=== PATIENT | female | born 1995 | race Caucasian/White ===

== ENCOUNTER 2017-07-06 12:59 | Emergency (ER) | payer MEDICAID ==
[2017-07-06 13:31] VITALS: BP 103/62
[2017-07-06] MEDS ORDERED: HYDROmorphone 0.5 MG/0.5 ML Syringe IM ONE (13:55)
--- NOTE | 2017-07-06 14:04 | EDM.PDOC ---
ED HPI GENERAL MEDICAL PROBLEM - General Chief Complaint: General Stated Complaint: CYST ON TAILBONE Time Seen by Provider: 07/06/17 13:56 Source of Information: Reports: Patient History Limitations: Reports: No Limitations - History of Present Illness INITIAL COMMENTS - FREE TEXT/NARRATIVE: pt arrived with a very painful pilonidal area with swelling and redness. This did start about fri. Onset: Gradual Duration: Day(s): Location: Reports: Other ( in pilonidal area. ) Quality: Reports: Sharp, Stabbing Severity: Moderate Associated Symptoms: Reports: No Other Symptoms tailbone Pain Score (Numeric/FACES): 8 - Related Data Allergies Allergy/AdvReac Type Severity Reaction Status Date / Time No Known Allergies Allergy Verified 07/06/17 13:22 Home Meds: Home Meds Ziprasidone HCl [Geodon] 40 mg PO DAILY 07/06/17 [History] Past Medical History - Past Health History Medical/Surgical History: Denies Medical/Surgical History Other OB/BYN History: ovarian cyst 2 years ago Psychiatric History: Reports: Anxiety, Depression, Suicide Attempt, Suicidal Ideation - Past Surgical History HEENT Surgical History: Reports: Oral Surgery Social & Family History - Tobacco Use Smoking Status *Q: Current Every Day Smoker Years of Tobacco use: 3 Packs/Tins Daily: 0.2 - Caffeine Use Caffeine Use: Reports: None - Alcohol Use Days Per Week of Alcohol Use: 0 - Recreational Drug Use Recreational Drug Use: No ED ROS GENERAL - Review of Systems Review Of Systems: See Below Constitutional: Reports: No Symptoms HEENT: Reports: No Symptoms Respiratory: Reports: No Symptoms Cardiovascular: Reports: No Symptoms Endocrine: Reports: No Symptoms GI/Abdominal: Reports: No Symptoms, Other (pain in the pilonidal cyst area. ) : Reports: No Symptoms Neurological: Reports: No Symptoms ED EXAM, GENERAL - Physical Exam Exam: See Below Free Text/Narrative:: pt arrived with pain in the pilonidal area. Exam Limited By: No Limitations General Appearance: Alert, Anxious, Moderate Distress Ears: Normal TMs Nose: Normal Inspection Throat/Mouth: Normal Inspection Head: Atraumatic Neck: Normal Inspection Respiratory/Chest: No Respiratory Distress Cardiovascular: Regular Rate, Rhythm GI/Abdominal: Soft, Non-Tender Rectal (Female) Exam: Other ( Pt has no rectal pain. She has localized swelling and redness in the pilonidal area. ) Back Exam: Normal Inspection Course - Vital Signs Last Recorded V/S: Last Vital Signs Temp 35.9 C 07/06/17 13:18 Pulse 100 07/06/17 13:30 Resp 22 H 07/06/17 13:30 BP 103/62 07/06/17 13:30 Pulse Ox 98 07/06/17 13:30 - Orders/Labs/Meds Orders: Active Orders 24 hr Category Date Time Status CULTURE WOUND + SMEAR [RM] Stat Lab 07/06/17 15:03 Received Meds: Medications Discontinued Medications Generic Name Dose Route Start Last Admin Trade Name Freq PRN Reason Stop Dose Admin Hydromorphone HCl 0.5 mg 07/06/17 13:55 07/06/17 14:17 Dilaudid IM 07/06/17 13:56 0.5 mg ONETIME ONE Administration Lidocaine/Epinephrine 50 ml 07/06/17 14:30 07/06/17 14:35 Xylocaine 1% With Epinephrine 1:100,000 SUBCUT 07/06/17 14:31 50 ml ONETIME ONE Administration Povidone Iodine Confirm 07/06/17 14:42 Betadine 10% Soln Administered 07/06/17 14:43 Dose 1 ml .ROUTE .STK-MED ONE Povidone Iodine 118 ml 07/06/17 15:00 07/06/17 15:00 Betadine 10% Soln TOP 07/06/17 15:01 118 ml ONETIME ONE Administration - Re-Assessments/Exams Free Text/Narrative Re-Assessment/Exam: 07/06/17 15:10 Dr Hernandez opened the cyst and packed the wound. Departure - Departure Time of Disposition: 15:11 Disposition: Home, Self-Care 01 Condition: Fair Clinical Impression: Pilonidal abscess - Discharge Information Referrals: Sandi Padilla CNM [Primary Care Provider] - Forms: ED Department Discharge Care Plan Goals: Dr Hernandez will see the pt tomorrow, norco 5/325 q6h prn for pain augmentin.
[2017-07-06] MEDS ORDERED: Lidocaine 1% with EPINEPHrine 1:100,000 50 ML MDV SUBCUT ONE (14:30)
[2017-07-06] MEDS ORDERED: Povidone-Iodine 10% Soln 118.25 ML Bottle ONE (14:42)
[2017-07-06] MEDS ORDERED: Povidone-Iodine 10% Soln 118.25 ML Bottle TOP ONE (15:00)
--- NOTE | 2017-07-07 09:10 | OR ---
DATE OF PROCEDURE: 07/06/2017 PREOPERATIVE DIAGNOSIS: Pilonidal abscess. POSTOPERATVE DIAGNOSIS: Pilonidal abscess. PROCEDURE: Left lateral drainage of pilonidal abscess. SURGEON: Phi Jimenez MD. ANESTHESIA: Lidocaine 1% with epinephrine local. INDICATION: This 22-year-old white female noted onset of pain in her buttock cleft about four days ago. This became bad enough that she presented to the emergency room today seeking medical care. She denies fever and chills. She is found to have a pilonidal abscess. It tends to be to the left side of the buttock cleft. I counseled her for lateral drainage with a plan for later in the week, after things have calmed down, to proceed with excision of her central pilonidal disease while maintaining lateral drainage. She gave her informed consent to proceed. DESCRIPTION OF PROCEDURE: With the patient placed prone, her buttock cleft and surrounding area were prepped and draped in cb usual sterile fashion. Lidocaine 1% with epinephrine was then infiltrated to the left of her buttock cleft. An elliptical incision transversely was made in this area releasing copious quantities of purulent material which had a foul order. We obtained material for Gram stain and culture. The central abscess cavity, which pointed to the left, was explored with an instrument and any loculations were broken up. The incision was irrigated and then cleaned and packed with 0.25-inch iodoform gauze. A sterile dressing was applied. We started her on Augmentin 875 1 p.o. b.i.d. She was given Palisade 5/325 mg 1-2 p.o. q.4 hours p.r.n. pain, dispense 30. Follow up with me tomorrow in the clinic to remove the packing and begin local wound care. Later in the week we will excise the central pits, after this has calmed down some. Phi Jimenez MD /[id number] MTDD
== END 2017-07-06 15:27 | disposition home or self-care (01) ==
LOC: JP.ED 12:59
DX: L05.01 Pilonidal cyst with abscess (principal); F17.210 Nicotine dependence, cigarettes, uncomplicated; Z79.899 Other long term (current) drug therapy
CPT/HCPCS: 87070; 87205; 96372; 99284; J1170

== ENCOUNTER 2017-07-09 08:43 | Day surgery (SDC) | payer MEDICAID ==
[~2017-07-09 08:43] MED LIST: Midazolam 1 MG/ML 2 ML SDV ONE; Propofol 200 MG/20 ML SDV ONE; fentaNYL 100 MCG/2 ML SDV ONE
[2017-07-09] MEDS ORDERED: Dextrose 5%-Lactated Ringers 1,000 ML IV SCH (09:00)
[2017-07-09] MEDS ORDERED: Bupivacaine 0.5%/EPINEPHrine 1:200,000 50 ML MDV ONE (09:35)
[2017-07-09] MEDS ORDERED: Ampicillin/Sulbactam Na 3 GM in Sodium Chloride 0.9% 100 ML IV ONE (09:45)
[2017-07-09] MEDS ORDERED: Propofol 200 MG/20 ML SDV ONE ×2 (10:13→10:42)
[2017-07-09] MEDS: Acetaminophen/HYDROcodone 325-5 MG Tab PO PRN ×2 (11:39→12:31)
[2017-07-09 12:33] VITALS: BP 96/52
--- NOTE | 2017-07-09 13:15 | OR ---
DATE OF PROCEDURE: 07/09/2017 PREOPERATIVE DIAGNOSIS: Pilonidal disease, status post lateral drainage of a pilonidal abscess three days ago. POSTOPERATIVE DIAGNOSIS: Pilonidal disease, status post lateral drainage of a pilonidal abscess three days ago. PROCEDURE: Excision of central pilonidal disease with maintenance of lateral drainage. SURGEON: Phi Jimenez MD. ANESTHESIA: IV anesthesia with monitored anesthesia care. INDICATIONS: This is a 22-year-old white female who was seen in the emergency room three days ago with a pilonidal abscess. This was drained laterally to the patient's left. She had been undergoing local wound care and now that this has calm down a little, we are going to proceed with excision of her central pilonidal disease with maintenance of lateral drainage. I counseled her for this, and she gave her informed consent to proceed. DESCRIPTION OF PROCEDURE: The patient was placed prone on the operating room table. IV anesthesia was administered by the Anesthesia Service. Her pilonidal area was prepped and draped in the usual sterile fashion. Time-out was held. Marcaine 0.5% with epinephrine was infiltrated about the pilonidal pits and an #11 blade was used to excise the pilonidal pits. They were in a line, so it was a long excision that was made. We examined the tissue deep and saw no evidence of residual scarring or cutaneous material. The incision was irrigated and dried. We placed a Ray-Bambi sponge in the incision and brought it out laterally through the lateral drainage site to scour the tissue there. The incision was then closed with multiple [id number] stitches of 2-0 Prolene. The lateral drainage site was then packed with one quarter-inch iodoform gauze. A sterile dressing was applied. She was brought from the operating room in good condition having tolerated the procedure well. Phi Jimenez MD /[id number] MTDD
== END 2017-07-09 12:45 | disposition home or self-care (01) ==
LOC: JP.SDS 08:43
PROVIDERS: ATTEND Surgery
DX: L05.91 Pilonidal cyst without abscess (principal); F41.9 Anxiety disorder, unspecified; F32.9 Major depressive disorder, single episode, unspecified; F17.200 Nicotine dependence, unspecified, uncomplicated
CPT/HCPCS: 11770; A9270; J0295; J2250; J2704; J3010; J7030; J7042; 88304